=== PATIENT | female | born 1970 | race Caucasian/White ===

== ENCOUNTER 2018-08-19 07:13 | Day surgery (SDC) | payer OTHER, MEDICAID ==
[~2018-08-19 07:13] MED LIST: BALANCED SALT SOLN 15 ML OPH IRRIG
[2018-08-19] MEDS ORDERED: MITOMYCIN 5 MG INJ OP (08:00)
[2018-08-19] MEDS: TETRACAINE 0.5% 4 ML OPH RIGHT EYE (08:28)
[2018-08-19] MEDS ORDERED: TOBRAMYCIN/DEXAMETH 3.5 GM OPH OINT (08:36)
[2018-08-19] MEDS: PHENYLephrine 10% 5 ML OPH RIGHT EYE (08:39)
[2018-08-19] MEDS ORDERED: PROPOFOL 20 ML (08:43)
[2018-08-19] MEDS ORDERED: LIDOCAINE 2% (SDV) 5 ML INJ (08:43)
[2018-08-19] MEDS ORDERED: MIDAZOLAM 1 MG/ML 2 ML INJ (08:43)
[2018-08-19] MEDS: LIDOCAINE 2%/EPI (MDV) 20ML INJ INJ (08:59)
[2018-08-19] MEDS ORDERED: hydrALAzine 20 MG INJ IV (09:00)
[2018-08-19] MEDS ORDERED: ACETAMINOPHEN 325 MG TAB PO (09:00)
[2018-08-19] MEDS ORDERED: ACETAMINOPHEN 500 MG TAB PO (09:00)
[2018-08-19] MEDS ORDERED: ALBUTEROL 0.083% (NEB) 2.5 MG/3 ML AMP HHN (09:00)
[2018-08-19] MEDS ORDERED: ONDANSETRON 4 MG INJ IV (09:00)
[2018-08-19] MEDS ORDERED: DIPHENHYDRAMINE 50 MG INJ IV (09:00)
[2018-08-19] MEDS ORDERED: OXYCODONE/ACETAMINOPHEN (5/325) TAB PO (09:00)
[2018-08-19] MEDS ORDERED: FENTAnyl 50 MCG/ML VIAL IV (09:00)
[2018-08-19] MEDS ORDERED: LABETALOL HCL 20MG INJ IV (09:00)
[2018-08-19] MEDS: TOBRAMYCIN/DEXAMETH 3.5 GM OPH OINT RIGHT EYE (09:01)
[2018-08-19] MEDS ORDERED: PROPOFOL 40 ML (09:27)
[2018-08-19] MEDS ORDERED: HYDROCODONE/APAP (5/325) TAB PO (11:00)
[2018-08-19] MEDS ORDERED: TOBRAMYCIN/DEXAMETH 2.5 ML OPH OPER (11:30)
[2018-08-19] MEDS ORDERED: TOBRAMYCIN/DEXAMETH 3.5 GM OPH OINT OPER (21:00)
== END 2018-08-19 11:00 | disposition home or self-care (01) ==
LOC: SDS 07:13
DX: H11.001 Unspecified pterygium of right eye (principal); E03.9 Hypothyroidism, unspecified
CPT/HCPCS: 65426